=== PATIENT | female | born 1960 | race Asian ===

== ENCOUNTER 2019-07-05 23:17 | Emergency (ER) | payer OTHER ==
[2019-07-05 23:29] VITALS: TEMP 99.6; BMI 25.0
[2019-07-06 00:35] VITALS: BP 146/75
[2019-07-06 01:57] VITALS: PULSE 89
== END 2019-07-06 00:50 | disposition home or self-care (01) ==
LOC: JER 23:17
DX: R50.9 Fever, unspecified (principal); R00.0 Tachycardia, unspecified; Z20.828 Contact with and (suspected) exposure to other viral communicable diseases
CPT/HCPCS: 71045-TC-FY; 93005; 93010; 99284-25